=== PATIENT | male | born 1945 | race Caucasian/White ===

== ENCOUNTER 2020-03-11 13:31 | Outpatient (CLI) | payer MEDICARE, BC, SELFPAY ==
--- NOTE | ~2020-03-11 | CT_ITS ---
EXAMINATION: CT abdomen pelvis wo con DATE: 03/11/2020 14:00 INDICATION: Acute flank pain. Evaluate for kidney stone. TECHNIQUE: Computed tomography (CT) of the abdomen and pelvis was performed without intravenous contr ast. The dose-length product was 1028.43 mGy-cm. Automated exposure control and iterative reconstruct ion technique were employed. COMPARISON: None. FINDINGS: Lung bases are unremarkable. Heart size upper normal. No significant pleural or pericardial effusion. There calcified granulomas in the liver and spleen. 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 The adrenal glands are within normal limits. There is an ectopic horse shoe kidney centered in the right lower abdomen. There are parapelvic cysts as well as cortical cysts , largest measuring 7 cm. No ureteral stones or hydronephrosis. Bladder is unremarkable. Gallbladder is present. Retroaortic left renal vein. Nonobstructive bowel gas pattern. There are calcifications i n the pancreatic body, possibly secondary to chronic pancreatitis. No abnormal pelvic masses or fluid collections. Moderate lumbar spondylosis. IMPRESSION: 1. 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 Bilateral renal cysts. Reviewed, dictated and finalized at location A. IMPRESSION: 1. 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 Bilateral renal cysts.
== END 2020-03-11 13:32 | disposition home or self-care (01) ==
LOC: ANHIMG 13:38
PROVIDERS: PCP Internal Medicine; Visit Provider Internal Medicine
DX: R10.9 Unspecified abdominal pain (principal); I72.8 Aneurysm of other specified arteries
CPT/HCPCS: 74176

== ENCOUNTER 2020-04-23 08:15 | Outpatient (RCR) | payer MEDICARE, BC, SELFPAY ==
--- NOTE | 2020-03-26 09:18 | PTOPEVAL ---
PHYSICAL THERAPY EVALUATION AND PLAN OF CARE Thank you for referring Drake Patricio to [facility]. I recommend Adalid participate in PT 2x/week for 4 weeks. Please review, sign, date and return this plan of care CHERYL. I agree with and certify that the following plan of care is medically necessary. Referring Physician Date Attending Provider: Felicia Rees, FACSIMILE OPERATOR-C Evaluation Musculoskeletal History Hx Back Pain Yes: spinal stenosis Other History Hx Cancer Yes: prostate Diagnosis right lower back pain Onset 7 weeks ago Cause insidious Subjective Information Adalid is here today with Query Text:As Reported By Patient/ subacute right lower back pain Family . Reports that it started without cause. It has been fairly constant with good days and bad days. Today is not a good day. Yesterday was a good day and he spent the day taking care of a piece of property and today he is really sore. Right Spine, Lumbar Reported Pain Level 7 Pain Description Aching,Sharp Pain Frequency Acute,Continuous Lowest Pain Intensity 3 Greatest Pain Intensity 9 Pain Aggravating Factors Bending,Walking,Weight Bearing /Standing Pain Behaviors Moaning Cervical and Lumbar ROM Lumbar ROM Lumbar Flexion (0-90) 15 Query Text:Active in Degrees Lumbar Flexion Active Mid Head Query Text:Hands to: Lumbar Extension (0-40) 0 Query Text:Active in Degrees Lateral Rotation Right (0-45) 35 Query Text:Active in Degrees Lateral Rotation Left (0-45) 20 Query Text:Active in Degrees General Lower Extremity Range of Motion WFL/Left,WFL/Right Lumbar Strength Lower Abdominal Strength 3-Fair- Hip Strength Bilateral Hip Flexion Strength 5 Normal Hip Extension Strength 4 Good Hip Abduction Strength 3 Fair Knee Strength Bilateral Knee Flexion Strength 5 Normal Knee Extension Strength 5 Normal Muscle Length Testing Two-Joint Hip Flexor Shortened Muscles Short (R) Iliopsoas,Short (L) Iliopsoas,Short (R) Rectus Femoris,Short (L) Rectus Femoris Piriformis w/Hip Flexion >90 Degrees (L) Mild Tightness,(R) Moderate Tightness Left Hamstring Length -15 Query Text:(90 - 90 Position) Right Hamstring Length
--- NOTE | 2020-04-21 08:49 | PCPTNOTE ---
Addendum entered by Shama Mayo, MACHINE COREMAKER 04/21/20 17:24: Patient called wellness center after receiving phone call about therapy appointment this date. Stated last week on during his appointment he cancelled the appointment at the hotel front desk clerk and unsure where the message wasn't completed. Changed patients states to cancelled. Original Note: Patient did not show up for scheduled appointment this date; Called and left voicemail reminding about next appointment on 04/23 at 8:15
--- NOTE | 2020-04-23 08:39 | PTOPEVAL ---
PHYSICAL THERAPY DISCHARGE Thank you for referring Drake Patricio to [facility].? Please review, sign, date and return this plan of care CHERYL. I agree with and certify that the following plan of care is medically necessary. Referring Physician Date Attending Provider: Felicia eRes, ATTACHE-C Discharge Outpatient Past Medical History Musculoskeletal History Hx Back Pain Yes: spinal stenosis Other History Hx Cancer Yes: prostate Diagnosis right lower back pain Cause insidious Subjective Information Adalid reports he is feeling Query Text:As Reported By Patient/ really well. Nothing new to Family report except feeling better. He is doing his stretches at home and he is planning on getting more massages as needed. Self Report Pain Assessment Right Spine, Lumbar Reported Pain Level 1 Pain Description Aching,Sharp Pain Frequency Acute,Continuous Pain Behaviors Moaning Pain Score Pain Score 1: Self Report Cervical and Lumbar ROM Lumbar ROM Lumbar Flexion (0-90) 40 Query Text:Active in Degrees Lumbar Flexion Active Mid Head Query Text:Hands to: Lumbar Extension (0-40) 0 Query Text:Active in Degrees Lateral Rotation Right (0-45) 35 Query Text:Active in Degrees Lateral Rotation Left (0-45) 35 Query Text:Active in Degrees Lumbar Comments limited extension due to spinal stenosis Lower Extremity Muscle Strength Testing Hip Strength Bilateral Hip Flexion Strength 5 Normal Hip Extension Strength 4 Good Hip Abduction Strength 4+ Good + Knee Strength Bilateral Knee Flexion Strength 5 Normal Knee Extension Strength 5 Normal Muscle Length Testing Muscle Length Testing Two-Joint Hip Flexor Shortened Muscles Short (R) Iliopsoas,Short (L) Iliopsoas Piriformis w/Hip Flexion >90 Degrees (R) Mild Tightness,(L) Mild Tightness Left Hamstring Length -15 Query Text:(90 - 90 Position) Right Hamstring Length -15 Query Text:(90 - 90 Position) Posture Posture Standing Position Posture Evaluation View Posterior Thoracic Spine Posture Neutral Lumbar Spine Posture Flattened Hip Posture (L) Flexed,(R) Flexed Knee Posture (L) Excess Flexion,(R) Excess Flexion Additional Posture Comments right lateral flexion with hips flexed
== END 2020-06-09 11:35 | disposition home or self-care (01) ==
LOC: ANHPT 08:15
PROVIDERS: PCP Internal Medicine; Visit Provider Clinical Nurse Specialist
DX: M54.9 Dorsalgia, unspecified (principal)
CPT/HCPCS: 97110; 97140; 97161

== ENCOUNTER 2020-04-27 10:24 | Outpatient (CLI) | payer MEDICARE, BC, SELFPAY ==
--- NOTE | ~2020-04-27 | US_ITS ---
EXAMINATION: US renal BI DATE: 04/27/2020 11:06 INDICATION: Bilateral flank pain TECHNIQUE: Multiple ultrasound grayscale images of the kidneys were obtained. COMPARISON: 03/11/2020 FINDINGS: There is a horseshoe kidney with left and right moieties appearing subjectively normal in size. There are large bilateral anechoic cysts at both the left and right renal moieties measuring 6.7 cm in max imal diameter at the right moiety and 7.0 cm maximal diameter at the left moiety. There are smaller a nechoic cystic spaces at the ashley of both the left and right renal moieties which on prior CT corresp ond to multiple smaller parapelvic cyst. No hydronephrosis. The kidneys demonstrate normal echogenici ty. No stones identified. The bladder is normal. IMPRESSION: 1. Horseshoe kidney with multiple cysts at both moieties. No hydronephrosis. Reviewed, dictated and finalized at location A.
== END 2020-04-27 10:25 | disposition home or self-care (01) ==
PROVIDERS: PCP Internal Medicine; Visit Provider Nurse Practitioner Family
DX: R19.00 Intra-abdominal and pelvic swelling, mass and lump, unspecified site (principal); N28.1 Cyst of kidney, acquired
CPT/HCPCS: 76775

== ENCOUNTER 2020-09-14 16:11 | Outpatient (CLI) | payer MEDICARE, BC, SELFPAY ==
--- NOTE | ~2020-09-14 | US_ITS ---
EXAMINATION: US abdomen limited DATE: 09/14/2020 16:40 INDICATION: Right upper quadrant abdominal pain. TECHNIQUE: Multiple grayscale and Doppler ultrasound images of the abdomen were obtained. COMPARISON: CT abdomen and pelvis 03/11/2020 FINDINGS: The visualized portions of the body and tail of the pancreas are normal. The liver is marycruz l without focal lesion. There is normal flow in main portal vein. The gallbladder is normal in size. No gallstones or gallbladder wall thickening. There was no sonographic Corral sign. The common duct i s normal and measures 5 mm. There is fusion of the kidneys. There is a 6.9 cm cyst in right kidney. IMPRESSION: 1. No etiology for the patient's symptoms. Reviewed, dictated and finalized at location A. N YARN DYER
== END 2020-09-14 16:12 | disposition home or self-care (01) ==
PROVIDERS: PCP Internal Medicine; Visit Provider Nurse Practitioner
DX: R10.11 Right upper quadrant pain (principal)
CPT/HCPCS: 76705

== ENCOUNTER → 2020-09-18 11:23 | Outpatient (CLI) | payer MEDICARE, BC, SELFPAY ==
--- NOTE | ~2020-09-18 | CT_ITS ---
EXAMINATION: CT abdomen pelvis wo con DATE: 09/18/2020 11:40 INDICATION: Right upper quadrant pain TECHNIQUE: Computed tomography (CT) of the abdomen and pelvis was performed without intravenous contr ast. The dose-length product (DLP) was 1027.12 mGy-cm. Automated exposure control and iterative recon struction technique were employed. COMPARISON: 03/11/2020 FINDINGS: Minimal dependent atelectasis is present in the lung bases. The heart size is normal. Calci fied nodules of the visualized lung bases are consistent with old granulomatous disease. Punctate mao cifications in otherwise normal appearing liver and spleen likely represent healed granulomatous dise ase. Embolization coils in the splenic artery cause streak artifact in the upper abdomen. Punctate ca lcifications in otherwise normal appearing liver and spleen likely represent healed granulomatous dis ease. The gallbladder, adrenal glands, and visualized portions of the pancreas are unremarkable. Ther e is crossed fused ectopia of the kidneys which reside in the right abdomen. Cysts of the kidneys duane sure up to 7.4 cm. No hydronephrosis or hydroureter. No pathologically enlarged abdominal or pelvic l ymph nodes are identified. There is no free intraperitoneal gas or evidence of bowel obstruction. The re are bilateral inguinal hernias containing fat. There is severe lumbar spondylosis. A fat-containin g umbilical hernia is noted. IMPRESSION: 1. No CT correlate for the patient's symptoms. Reviewed, dictated and finalized at location A. ID CAR MECHANIC
== END ==
PROVIDERS: PCP Internal Medicine; Visit Provider Nurse Practitioner
DX: R10.11 Right upper quadrant pain (principal)
CPT/HCPCS: 74176

== ENCOUNTER → 2020-11-14 01:40 | Outpatient (CLI) | payer MEDICARE, BC, SELFPAY ==
[2020-11-14 18:53] LABS: SARS-CoV-2 RNA PCR Negative
== END ==
PROVIDERS: PCP Internal Medicine; Visit Provider Internal Medicine Gastroenterology
DX: Z01.812 Encounter for preprocedural laboratory examination (principal); Z20.822 Contact with and (suspected) exposure to COVID-19
CPT/HCPCS: C9803; U0003; U0005

== ENCOUNTER 2020-11-17 01:34 | Day surgery (SDC) | payer MEDICARE, BC, SELFPAY ==
[2020-11-02 14:34] VITALS: BMI 31.0
[2020-11-17 10:12] VITALS: BP 141/77; PULSE 53; RESP 18; TEMP 36.3; O2SAT 97; BMI 30.3
[2020-11-17] MEDS: LACTATED RINGERS 1,000 ML 150 ML IV CONT (10:27)
[2020-11-17 10:34] LABS: Glucose Point of Care 134 (65-105)
--- NOTE | 2020-11-17 10:46 | WPDANESEPPF ---
Anes - Initial Pre Proc Eval Procedure: Operation Date: 11/17/20 11:00 Proposed Procedures p Esophagogastroduodenoscopy - Phil Joseph MD Date/Time: 11/17/20 10:46 Surgeon: Phil Joseph MD Pre Op Diagnosis: Dysphagia Patient Data Age: 75 Gender: M Height: 6 ft 1 in Weight: 104.4 kg Last Vital Signs Temp 97.4 F L 11/17/20 10:12 Pulse 53 L 11/17/20 10:12 Resp 18 11/17/20 10:12 BP 141/77 H 11/17/20 10:12 Pulse Ox 97 11/17/20 10:12 Allergies Allergy/AdvReac Type Severity Reaction Status Date / Time No Known Allergies Allergy Unverified 11/17/20 10:11 Home Medications Medication Instructions Recorded Confirmed Type metformin 1,000 mg tablet 1,000 mg PO DAILY #90 tablet 05/06/20 11/17/20 Rx amlodipine 10 mg-benazepril 40 mg 1 cap PO DAILY #90 cap 06/22/20 11/17/20 Rx capsule simvastatin 20 mg tablet 20 mg PO DAILY #90 tablet 06/22/20 11/17/20 Rx nebivolol 5 mg tablet 5 mg PO DAILY #90 tablet 07/21/20 11/17/20 Rx allopurinol 300 mg tablet 300 mg PO DAILY #90 tablet 08/11/20 11/17/20 Rx hydrochlorothiazide 25 mg tablet 25 mg PO DAILY #90 tablet 08/11/20 11/17/20 Rx oxybutynin chloride 5 mg tablet 5 mg PO DAILY 10/14/20 11/17/20 History Laboratory Tests 11/17/20 10:29 POC Capillary Glucose 134 mg/dl H mg/dl (65-105) Patient hx anesthesia problems: none Family hx anesthesia problems: none [facility] Past Medical History Medical History (Updated 10/28/20 @ 13:25 by Phil Joseph MD) Aneurysm artery, hepatic (~07/2020) Colon cancer screening HLD (hyperlipidemia) HTN (hypertension) Lump in throat Prostate cancer Type 2 diabetes mellitus without complication, without long-term current use of insulin Von Willebrand disease Surgical History Surgical History H/O right knee surgery History of appendectomy History of prostate surgery History of skin surgery basal cell removal History of tonsillectomy Hx of cataract surgery Family History Family History Mother Family history of Parkinson's disease Father Family history of congestive heart failure Sibling Cancer Social History Social History Years smoked: 30 Smoking status: Former smoker Tobacco type: cigars Smoking end date: 09/04/93 Alcohol intake: current Substance use type: does not use Living arrangements: with family Gender identity (if verbalized by the patient): Male Spiritual care concerns: No Anes - Eval Final PreProcedure Day of Procedure 11/17/20 10:46 Patient weight: obese Heart: regular rate and rhythm Lungs: clear to auscultation Airway: Mallampati scale class III Neurological: alert and oriented Last oral intake: >/= 8 hours ASA classification: III Emergent: no Anesthetic plan: proceed Anesthesia type and monitoring: general GIVS and standard monitoring Informed Consent: The patient's anesthetic plan and its attendant risks and benefits were discussed with the patient/family/POA. Questions were solicited and answers provided to the satisfaction of the patient/family/POA.
--- NOTE | 2020-11-17 11:47 | WPDHPUPDATE1 ---
History and Physical Update Update Date/Time: 11/17/20 11:47 History and Physical has been reviewed, including an updated exam of the patient. There are NO changes in the patient's condition. Risks, benefits, and alternatives have been discussed and questions answered. Patient agrees to proceed with procedure.
[2020-11-17] MEDS: BENZOCAINE (*SP) 60 ML SPRAY CAN (HURRICAINE) 1 SPRAY MUCOUS MEM (11:53)
[2020-11-17 12:00] VITALS: BP 106/59; PULSE 54; RESP 18; O2SAT 93
[2020-11-17 12:10] VITALS: BP 114/64; PULSE 52; RESP 20; O2SAT 93
[2020-11-17 12:20] VITALS: BP 127/66; PULSE 50; RESP 16; O2SAT 94
[2020-11-17 12:30] VITALS: BP 136/67; PULSE 52; RESP 18; O2SAT 95
== END 2020-11-17 12:38 | disposition home or self-care (01) ==
PROVIDERS: PCP Internal Medicine; Visit Provider Internal Medicine Gastroenterology
PROC: 0DJ08ZZ Inspection of Upper Intestinal Tract, Via Natural or Artificial Opening Endoscopic (ICD-10-PCS; CPT 43235; principal; 2020-11-17 11:00)
DX: F45.8 Other somatoform disorders (principal); I10 Essential (primary) hypertension; E78.5 Hyperlipidemia, unspecified; E11.9 Type 2 diabetes mellitus without complications; D68.0 Von Willebrand disease; Z85.46 Personal history of malignant neoplasm of prostate; Z79.84 Long term (current) use of oral hypoglycemic drugs; Z87.891 Personal history of nicotine dependence; E66.9 Obesity, unspecified; Z68.30 Body mass index [BMI] 30.0-30.9, adult
CPT/HCPCS: 43235; 82948; J2704; J7120

== ENCOUNTER 2021-04-30 06:39 | Outpatient (CLI) | payer MEDICARE, BC, SELFPAY ==
--- NOTE | ~2021-04-30 | MR_ITS ---
EXAMINATION: MR lumbar spine wo con DATE: 04/30/2021 08:06 INDICATION: Lumbar radiculopathy. TECHNIQUE: Magnetic resonance imaging (MRI) of the lumbar spine was performed without intravenous con trast. Sequences included sagittal T2-weighted FSE, sagittal T2-weighted FS FSE, sagittal T1-weighted FSE, and axial T2-weighted FSE. COMPARISON: Lumbar spine MRI 09/24/2015 FINDINGS: There is 5 degrees levocurvature of lumbar spine. Vertebral body heights are normal. There is moderately decreased disc height at L3-L4 and severely decreased disc height at L4-L5 and L5-S1 wi th endplate remodeling. The distal spinal cord signal intensity is normal. The conus medullaris is at L1. There are kidneys are fused in the right abdomen. There are cysts in the kidneys measuring up to 6.6 cm. The following disc levels are specifically discussed: L1-L2: The disc is bulging. There is mild bilateral facet joint osteoarthritis. There is mild bilater al neural foraminal stenosis. There is mild central canal stenosis. L2-L3: The disc is mildly bulging. There is mild bilateral facet joint osteoarthritis. There is mild bilateral neural foraminal stenosis. There is no central canal stenosis. L3-L4: The disc is bulging and has an annular fissure. There is moderate bilateral facet joint osteoa rthritis. There is mild bilateral neural foraminal stenosis. There is mild central canal stenosis. L4-L5: The disc is bulging and has an annular fissure. There is severe right and moderate left facet joint osteoarthritis. There is mild bilateral neural foraminal stenosis. There is no central canal st enosis. L5-S1: The disc is bulging and has an annular fissure. There is moderate bilateral facet joint osteoa rthritis. There is moderate left neural foraminal stenosis. There is mild central canal stenosis. IMPRESSION: 1. Severe lumbar spondylosis, stable from 09/24/2015. Reviewed, dictated and finalized at location A.
== END 2021-04-30 06:40 | disposition home or self-care (01) ==
PROVIDERS: PCP Internal Medicine; Visit Provider Nurse Practitioner
DX: M54.16 Radiculopathy, lumbar region (principal); M47.816 Spondylosis without myelopathy or radiculopathy, lumbar region
CPT/HCPCS: 72148

== ENCOUNTER 2021-06-22 15:48 | Outpatient (CLI) | payer MEDICARE, BC, SELFPAY ==
[2021-06-22 16:08] LABS: Hematocrit 45.3 % (42.0-52.0); Hemoglobin 15.2 g/dL (14.0-18.0); Mean Corpuscular HGB Conc 33.6 g/dl (32-36); Mean Corpuscular Hemoglobin 32.7 pg (26-34); Mean Corpuscular Volume 97.4 fl (80-100); Mean Platelet Volume 9.7 fl (7.4-10.4); Platelet Count Result 186 k/mm3 (150-375); Red Blood Count 4.65 M/mm3 (4.6-6.20); White Blood Count 5.6 K/mm3 (4.5-10.0)
[2021-06-22 16:43] LABS: INR 0.9; Prothrombin Time 11.6 Seconds (11.1-14.7)
== END 2021-06-22 15:49 | disposition home or self-care (01) ==
LOC: ANHLAB 15:51
PROVIDERS: PCP Internal Medicine; Visit Provider Internal Medicine Hematology & Oncology
DX: D68.0 Von Willebrand disease (principal)
CPT/HCPCS: 36415; 85027; 85240; 85245; 85246; 85247; 85610; 85730

== ENCOUNTER 2021-12-29 01:18 | Day surgery (SDC) | payer MEDICARE, BC, SELFPAY ==
[2021-12-20 08:45] VITALS: BMI 31.0
[2021-12-29 11:54] VITALS: BP 159/80; PULSE 77; RESP 18; TEMP 36.3; O2SAT 99; BMI 29.9
[2021-12-29] MEDS: LACTATED RINGERS 1,000 ML 150 ML IV CONT (12:23)
[2021-12-29 12:40] LABS: Glucose Point of Care 155 mg/dl (65-105)
--- NOTE | 2021-12-29 13:01 | WPDANESEPPF ---
Anes - Initial Pre Proc Eval Procedure: Operation Date: 12/29/21 13:15 Proposed Procedures p Colonoscopy - Phil Joseph MD Date/Time: 12/29/21 13:01 Surgeon: Phil Joseph MD Pre Op Diagnosis: positive cologuard Patient Data Age: 76 Gender: M Height: 1.85 m Weight: 103.1 kg Last Vital Signs Temp 97.3 F L 12/29/21 11:54 Pulse 77 12/29/21 11:54 Resp 18 12/29/21 11:54 BP 159/80 H 12/29/21 11:54 Pulse Ox 99 12/29/21 11:54 Allergies Allergy/AdvReac Type Severity Reaction Status Date / Time No Known Allergies Allergy Verified 12/29/21 12:01 Home Medications Medication Instructions Recorded Confirmed Type simvastatin 20 mg tablet 20 mg PO DAILY #90 tablet 06/03/21 12/29/21 Rx hydrochlorothiazide 25 mg tablet 25 mg PO DAILY #90 tablet 09/20/21 12/29/21 Rx methocarbamol 500 mg tablet 500 mg PO TID 10/20/21 12/29/21 History metformin 1,000 mg tablet 1,000 mg PO DAILY #90 tablet 11/09/21 12/29/21 Rx allopurinol 300 mg tablet 300 mg PO DAILY #90 tablet 12/17/21 12/29/21 Rx amlodipine 10 mg-benazepril 40 mg 1 cap PO DAILY #90 cap 12/23/21 12/29/21 Rx capsule Laboratory Tests 12/29/21 12:09 POC Capillary Glucose 155 mg/dl H mg/dl (65-105) Patient hx anesthesia problems: none Family hx anesthesia problems: none Results Review: All pre-operative results and documents have been reviewed as part of the pre-operative evaluation. [facility] Past Medical History Medical History (Updated 11/15/21 @ 10:20 by Marcy Toscano MA) Aneurysm artery, hepatic (~07/2020) Colon cancer screening HLD (hyperlipidemia) HTN (hypertension) Lump in throat Neuropathy Positive colorectal cancer screening using Cologuard test Prostate cancer Type 2 diabetes mellitus without complication, without long-term current use of insulin Von Willebrand disease Surgical History Surgical History H/O right knee surgery History of appendectomy History of prostate surgery History of skin surgery basal cell removal History of tonsillectomy Hx of cataract surgery Family History Family History Mother Family history of Parkinson's disease Father Family history of congestive heart failure Sibling Cancer Social History Social History Years smoked: 30 Smoking status: Current every day smoker Tobacco type: cigars Smoking end date: 09/04/93 Additional smoking assessment comments: quit cigarettes 40 years ago, has daily cigar Alcohol intake: current Drinks per week: 7 Alcohol use details: 1-2 drinks daily Substance use: never Substance use type: does not use Living arrangements: with family Gender identity (if verbalized by the patient): Male Spiritual care concerns: No Anes - Eval Final PreProcedure Day of Procedure 12/29/21 13:01 Patient weight: obese Heart: regular rate and rhythm Lungs: clear to auscultation Airway: Mallampati scale class II Neurological: alert and oriented Last oral intake: >/= 8 hours ASA classification: III Emergent: no Anesthetic plan: proceed Anesthesia type and monitoring: general GIVS and standard monitoring Results Review: All pre-operative results and documents have been reviewed as part of the pre-operative evaluation. Informed Consent: The patient's anesthetic plan and its attendant risks and benefits were discussed with the patient/family/POA. Questions were solicited and answers provided to the satisfaction of the patient/family/POA.
--- NOTE | 2021-12-29 13:30 | PM.HPGS ---
History of Present Illness History of Present Illness Consent: Risks, benefits, and alternatives have been discussed and questions answered. Patient agrees to proceed with procedure. Chief complaint: positive cologuard Narrative: Drake Patricio is a 76 year old male with recent positive cologuard, had colonoscopy but over 10 years ago. Review of Systems Constitutional: Constitutional: Denies headache(s) and Denies weakness Eyes: Eyes: Denies blurry vision ENT: Reports Normal hearing present, Denies headache(s) and Denies neck pain Cardiovascular: Cardiovascular: Denies chest pain and Denies dyspnea Respiratory: Respiratory: Denies dyspnea Gastrointestinal: Gastrointestinal: Reports no additional gastrointestinal complaints Genitourinary: Genitourinary: Denies dysuria Musculoskeletal: Musculoskeletal: Denies neck pain Integumentary/Breasts: Skin/Breast: Denies dry skin Neurologic: Reports Normal hearing present, Denies headache(s) and Denies weakness Psychiatric: Psychiatric: Denies anxiety Endocrine: Endocrine: Denies change in body appearance Hematologic/Lymphatic: Hematologic/Lymphatic: Denies easy bleeding Allergic/Immunologic: Allergic/Immunologic: Denies urticaria [facility] Past Medical History Medical History (Updated 11/15/21 @ 10:20 by Marcy Toscano MA) Aneurysm artery, hepatic (~07/2020) Colon cancer screening HLD (hyperlipidemia) HTN (hypertension) Lump in throat Neuropathy Positive colorectal cancer screening using Cologuard test Prostate cancer Type 2 diabetes mellitus without complication, without long-term current use of insulin Von Willebrand disease Surgical History Surgical History H/O right knee surgery History of appendectomy History of prostate surgery History of skin surgery basal cell removal History of tonsillectomy Hx of cataract surgery Family History Family History Mother Family history of Parkinson's disease Father Family history of congestive heart failure Sibling Cancer Social History Social History Years smoked: 30 Smoking status: Current every day smoker Tobacco type: cigars Smoking end date: 09/04/93 Additional smoking assessment comments: quit cigarettes 40 years ago, has daily cigar Alcohol intake: current Drinks per week: 7 Alcohol use details: 1-2 drinks daily Substance use: never Substance use type: does not use Living arrangements: with family Gender identity (if verbalized by the patient): Male Spiritual care concerns: No Meds Home Medications and Allergies Home Medications Medication Instructions Recorded Confirmed Type simvastatin 20 mg tablet 20 mg PO DAILY #90 tablet 06/03/21 12/29/21 Rx hydrochlorothiazide 25 mg tablet 25 mg PO DAILY #90 tablet 09/20/21 12/29/21 Rx methocarbamol 500 mg tablet 500 mg PO TID 10/20/21 12/29/21 History metformin 1,000 mg tablet 1,000 mg PO DAILY #90 tablet 11/09/21 12/29/21 Rx allopurinol 300 mg tablet 300 mg PO DAILY #90 tablet 12/17/21 12/29/21 Rx amlodipine 10 mg-benazepril 40 mg 1 cap PO DAILY #90 cap 12/23/21 12/29/21 Rx capsule Allergies Allergy/AdvReac Type Severity Reaction Status Date / Time No Known Allergies Allergy Verified 12/29/21 12:01 Vital Signs Vital Signs - 24 hr 12/29/21 11:54 Temperature 97.3 F L Pulse Rate 77 Respiratory Rate 18 Blood Pressure 159/80 H Pulse Oximetry 99 Exam Const: General: comfortable and no acute distress HENMT: General nose exam: Normal nares present Eyes: General: appearance normal, both eyes and all related structures Neck: Neck: no JVD Resp: Auscultation: clear to auscultation bilaterally Cardio: Rate: regular rate Rhythm: regular rhythm GI: Inspection: non-distended GI Palp: Yes Soft to p
[2021-12-29 14:20] VITALS: BP 132/77; PULSE 69; RESP 23; O2SAT 97
[2021-12-29 14:30] VITALS: BP 141/81; PULSE 63; RESP 20; O2SAT 97
[2021-12-29 14:40] VITALS: BP 157/83; PULSE 60; RESP 19; O2SAT 96
== END 2021-12-29 14:47 | disposition home or self-care (01) ==
PROVIDERS: PCP Internal Medicine; Visit Provider Internal Medicine Gastroenterology
PROC: 0DJD8ZZ Inspection of Lower Intestinal Tract, Via Natural or Artificial Opening Endoscopic (ICD-10-PCS; CPT 45378; principal; 2021-12-29 13:15)
DX: R19.5 Other fecal abnormalities (principal); D12.2 Benign neoplasm of ascending colon; K57.30 Diverticulosis of large intestine without perforation or abscess without bleeding; K64.8 Other hemorrhoids; I10 Essential (primary) hypertension; I72.8 Aneurysm of other specified arteries; E78.5 Hyperlipidemia, unspecified; E11.40 Type 2 diabetes mellitus with diabetic neuropathy, unspecified; D68.0 Von Willebrand disease; Z85.46 Personal history of malignant neoplasm of prostate; Z79.84 Long term (current) use of oral hypoglycemic drugs; F17.290 Nicotine dependence, other tobacco product, uncomplicated; E66.9 Obesity, unspecified; Z68.30 Body mass index [BMI] 30.0-30.9, adult
CPT/HCPCS: 45385; 45381; 82948; 88305; J2704; J7120

== ENCOUNTER 2022-08-12 00:47 | Day surgery (SDC) | payer MEDICARE, BC, SELFPAY ==
[2022-08-02 12:57] VITALS: BMI 30.2
[2022-08-12 08:55] VITALS: BP 146/70; PULSE 70; RESP 18; TEMP 36.4; O2SAT 99; BMI 29.1
[2022-08-12] MEDS: LACTATED RINGERS 1,000 ML 150 ML IV CONT (09:20)
[2022-08-12 09:22] LABS: Glucose Point of Care 136 mg/dl (65-105)
--- NOTE | 2022-08-12 09:46 | PM.HPGS ---
History of Present Illness History of Present Illness Consent: Risks, benefits, and alternatives have been discussed and questions answered. Patient agrees to proceed with procedure. Chief complaint: hx colon polyp Narrative: Drake Patricio is a 76 year old male with large polyp removed in piece-meal 12/2021 Review of Systems Constitutional: Constitutional: Denies headache(s) and Denies weakness Eyes: Eyes: Denies blurry vision ENT: Reports Normal hearing present, Denies headache(s) and Denies neck pain Cardiovascular: Cardiovascular: Denies chest pain and Denies dyspnea Respiratory: Respiratory: Denies dyspnea Gastrointestinal: Gastrointestinal: Reports no additional gastrointestinal complaints Genitourinary: Genitourinary: Denies dysuria Musculoskeletal: Musculoskeletal: Denies neck pain Integumentary/Breasts: Skin/Breast: Denies dry skin Neurologic: Reports Normal hearing present, Denies headache(s) and Denies weakness Psychiatric: Psychiatric: Denies anxiety Endocrine: Endocrine: Denies change in body appearance Hematologic/Lymphatic: Hematologic/Lymphatic: Denies easy bleeding Allergic/Immunologic: Allergic/Immunologic: Denies urticaria [facility] Past Medical History Medical History (Updated 08/12/22 @ 09:46 by Phil Joseph MD) Adenomatous colon polyp Aneurysm artery, hepatic (~07/2020) Colon cancer screening HLD (hyperlipidemia) HTN (hypertension) Lump in throat Neuropathy Positive colorectal cancer screening using Cologuard test Prostate cancer Type 2 diabetes mellitus without complication, without long-term current use of insulin Von Willebrand disease Surgical History Surgical History H/O right knee surgery History of appendectomy History of prostate surgery History of skin surgery basal cell removal History of tonsillectomy Hx of cataract surgery Family History Family History Mother Family history of Parkinson's disease Father Family history of congestive heart failure Sibling Cancer Social History Social History Years smoked: 10 Smoking status: Current every day smoker Tobacco type: cigars Smoking end date: 09/04/93 Additional smoking assessment comments: quit cigarettes 40 years ago, has daily cigar Alcohol intake: current Drinks per week: 7 Alcohol use details: 1 DRINK A DAY, SCOTCH Substance use: never Substance use type: does not use Living arrangements: with family Gender identity (if verbalized by the patient): Male Spiritual care concerns: No Meds Home Medications and Allergies Home Medications Medication Instructions Recorded Confirmed Type hydrochlorothiazide 25 mg tablet 25 mg PO DAILY #90 tabs 09/20/21 08/12/22 Rx simvastatin 20 mg tablet See Rx Instructions .Route 06/03/22 08/12/22 Rx .COMPLEX #90 tabs amlodipine 10 mg-benazepril 40 mg See Rx Instructions .Route 06/27/22 08/12/22 Rx capsule .COMPLEX #90 caps metformin 1,000 mg tablet See Rx Instructions .Route 08/02/22 08/12/22 Rx .COMPLEX #90 tabs methocarbamol 500 mg tablet 500 mg PO TID PRN Muscle Pain 08/02/22 08/12/22 History allopurinol 300 mg tablet 300 mg PO DAILY #90 tabs 08/10/22 08/12/22 Rx Allergies Allergy/AdvReac Type Severity Reaction Status Date / Time No Known Allergies Allergy Verified 08/12/22 09:03 Vital Signs Vital Signs - 24 hr 08/12/22 08:55 Temperature 97.6 F Pulse Rate 70 Respiratory Rate 18 Blood Pressure 146/70 H Pulse Oximetry 99 Oxygen Delivery Room Air Exam Const: General: comfortable and no acute distress HENMT: Face/Nose/Sinus: Normal nares present Eyes: General: appearance normal, both eyes and all related structures Neck: Neck: no JVD Resp: Auscultation: clear to auscultation bilaterall
[2022-08-12 10:09] VITALS: BP 131/78; PULSE 70; RESP 17; O2SAT 96
[2022-08-12 10:19] VITALS: BP 134/82; PULSE 78; RESP 18; O2SAT 98
[2022-08-12 10:29] VITALS: BP 136/81; PULSE 68; RESP 18; O2SAT 98
== END 2022-08-12 10:40 | disposition home or self-care (01) ==
PROVIDERS: PCP Internal Medicine; Visit Provider Internal Medicine Gastroenterology
PROC: 0DJD8ZZ Inspection of Lower Intestinal Tract, Via Natural or Artificial Opening Endoscopic (ICD-10-PCS; CPT 45378; principal; 2022-08-12 10:15)
DX: Z12.11 Encounter for screening for malignant neoplasm of colon (principal); D12.2 Benign neoplasm of ascending colon; D12.3 Benign neoplasm of transverse colon; D12.4 Benign neoplasm of descending colon; K64.8 Other hemorrhoids; E78.5 Hyperlipidemia, unspecified; I10 Essential (primary) hypertension; Z85.46 Personal history of malignant neoplasm of prostate; F17.290 Nicotine dependence, other tobacco product, uncomplicated
CPT/HCPCS: 45385; 82948; 88305; J2704; J7120

== ENCOUNTER 2023-07-17 13:20 | Outpatient (CLI) | payer MEDICARE, BC, SELFPAY ==
--- NOTE | ~2023-07-17 | US_ITS ---
EXAMINATION: US soft tissue UE LT DATE: 07/17/2023 13:47 INDICATION: Left forearm mass TECHNIQUE: Multiple grayscale and Doppler ultrasound images of the region of concern at the left fore arm were obtained. COMPARISON: None FINDINGS: There is a 3-4 mm hypoechoic nodule centered in the subcutaneous tissues at the region of concern. Th ere is focal surrounding soft tissue swelling with thickening of the subcutaneous fat in greatest in the region of the nodule. No significant associated vascular flow on color Doppler. IMPRESSION: 1. Focal soft tissue swelling surrounding a nonspecific 3-4 mm hypoechoic nodule in the superficial s ubcutaneous tissues which could be infectious, inflammatory or neoplastic in etiology. Reviewed, dictated and finalized at location A. SCI[facility] PROFESS[facility] IMPRESSION: 1. Focal soft tissue swelling surrounding a nonspecific 3-4 mm hypoechoic nodul e in the superficial subcutaneous tissues which could be infectious, inflammato ry or neoplastic in etiology.
== END 2023-07-17 13:21 ==
DX: R22.32 Localized swelling, mass and lump, left upper limb (principal)
CPT/HCPCS: 76882

== ENCOUNTER 2023-12-20 08:15 | Emergency (ER) | payer MEDICARE, BC, SELFPAY ==
[2023-12-20 08:24] VITALS: BP 142/65; PULSE 80; RESP 14; TEMP 36.6; O2SAT 97
--- NOTE | 2023-12-20 08:52 | ED.EXTPRO ---
HPI - Extremity Problem General Chief complaint: Extremity Problem,Nontraumatic Stated complaint: Right Foot Pain Time Seen by Provider: 12/20/23 08:37 Source: patient and RN notes reviewed Mode of arrival: ambulatory Limitations: no limitations History of Present Illness HPI Narrative: Patient presents today complaining of a painful callus to the bottom of his right foot that has been present for a couple of months. States it has been debulked few times by Podiatry, but states this has caused more issues. The last time he saw podiatry was approximately 1 month ago and pain has worsened over the last 3 days. He has an appointment next week for follow-up, but states his pain is currently 10/10. He has been applying an Nino wrapped his foot which has helped as well as taking ibuprofen which has helped minimally. Patient does have some neuropathy to his toes. Related Data Home Medications Medication Instructions Recorded Confirmed cholecalciferol (vitamin D3) 25 25 mcg PO DAILY 10/10/23 12/20/23 mcg (1,000 unit) capsule vitamin B complex 1 tablet PO DAILY 10/10/23 12/20/23 Allergies Allergy/AdvReac Type Severity Reaction Status Date / Time No Known Allergies Allergy Verified 12/20/23 08:25 Review of Systems Review of Systems: CONSTITUTIONAL: Denies body aches, fever, chills, or sweats. EYES: Denies visual changes, redness, or discharge. ENT: Denies rhinorrhea, congestion, sore throat, or otalgia. CARDIOVASCULAR: Denies chest pain, palpitations, or edema. RESPIRATORY: Denies cough or dyspnea. GASTROINTESTINAL: Denies abdominal pain, nausea, vomiting, or diarrhea. GENITOURINARY: Denies dysuria or hematuria. SKIN: Denies rash, itching, or wounds. MUSCULOSKELETAL: Denies back pain, or myalgia.+ right foot pain NEUROLOGIC: Denies headache, numbness, tingling, or weakness. PSYCH: Denies depression or anxiety. [facility] Past Medical History Medical History Adenomatous colon polyp Aneurysm artery, hepatic (~07/2020) Colon cancer screening HLD (hyperlipidemia) HTN (hypertension) Lump in throat Neuropathy Positive colorectal cancer screening using Cologuard test Prostate cancer Type 2 diabetes mellitus without complication, without long-term current use of insulin Von Willebrand disease Surgical History Surgical History H/O right knee surgery History of appendectomy History of prostate surgery History of skin surgery basal cell removal History of surgery on arm History of tonsillectomy Hx of cataract surgery Family History Family History Mother Family history of Parkinson's disease Father Family history of congestive heart failure Sibling Cancer Social History Social History (Updated 12/20/23 @ 08:54 by Suzanne Del Real, [place], ) Years smoked: 10 Smoking status: Former smoker Tobacco type: cigars Smoking end date: 09/04/93 Additional smoking assessment comments: quit cigarettes 40 years ago, has daily cigar Alcohol intake: current Drinks per week: 7 Alcohol use details: 1 DRINK A DAY, SCOTCH Substance use: never Substance use type: does not use Lack of Transportation: No Lack of Food: Never True Current Housing: I Have Housing Concerned About Future Housing: No Difficulty Paying Gas/Electric Bills: No Difficulty Paying for Meds: No Currently Unemployed: No Education: High School Diploma/GED Difficulty w/ Childcare or Family Care: No Living arrangements: with family Gender identity (if verbalized by the patient): Male Spiritual care concerns: No Exam Narrative: GENERAL: Well-appearing, well-nourished, and in no acute distress. HEAD: Normocephalic, atraumatic. EYES: EOMI. No redness or drainage. Conjunctivae normal. ENT: Mucous membranes pink and moist
== END 2023-12-20 08:53 | disposition home or self-care (01) ==
PROVIDERS: Emergency Provider Nurse Practitioner; PCP Internal Medicine
DX: L03.115 Cellulitis of right lower limb (principal); L84 Corns and callosities; F17.290 Nicotine dependence, other tobacco product, uncomplicated; E78.5 Hyperlipidemia, unspecified; I10 Essential (primary) hypertension; G62.9 Polyneuropathy, unspecified; E11.9 Type 2 diabetes mellitus without complications; D68.00 Von Willebrand disease, unspecified; Z85.828 Personal history of other malignant neoplasm of skin
CPT/HCPCS: 99213; G0463

== ENCOUNTER 2024-02-12 08:53 | Outpatient (CLI) | payer MEDICARE, BC, SELFPAY ==
--- NOTE | ~2024-02-12 | XR_ITS ---
XR chest 2V Ordering provider: Vesta Bennett NP History: 78 years Male with . R63.4 - Abnormal weight loss . Comparison: March 19, 2014 FINDINGS: MEDIASTINUM: The cardiac silhouette is not enlarged. LUNGS: No effusions or pneumothorax. Atelectatic changes in the left lung base. OTHER: Degenerative changes of the spine. No free air under the diaphragm. IMPRESSION: Atelectatic changes in the left lung base. Early pneumonia is not excluded. Reviewed, dictated and finalized at location A.
== END 2024-02-12 08:54 ==
LOC: GOSHIMG 08:54
PROVIDERS: PCP Internal Medicine; Visit Provider Nurse Practitioner
DX: R63.4 Abnormal weight loss (principal); J98.11 Atelectasis
CPT/HCPCS: 71046

== ENCOUNTER 2024-03-13 15:38 | Emergency (ER) | payer MEDICARE, BC, SELFPAY ==
[2024-03-13 15:48] VITALS: BP 141/70; PULSE 91; RESP 16; TEMP 36.8; O2SAT 95
--- NOTE | 2024-03-13 16:09 | ED.URI ---
HPI - URI/Sore Throat General Chief Complaint: Upper Respiratory Infection Stated Complaint: cough Time Seen by Provider: 03/13/24 16:01 Source: patient and RN notes reviewed Mode of arrival: ambulatory Limitations: no limitations History of Present Illness HPI Narrative: Patient presents today with a 3 day history of dry nonproductive cough that is worse when he is lying flat. Patient states he feels chest congestion but it will not come up. Denies shortness of breath or chest pain. He has not tried any [id number] treatment for his symptoms prior to arrival. Denies history of COPD or asthma. Smokes 2 cigars per day. Denies any additional symptoms to include sore throat, ear pain, fever, congestion or rhinorrhea. Related Data Home Medications Medication Instructions Recorded Confirmed cholecalciferol (vitamin D3) 25 25 mcg PO DAILY 10/10/23 03/13/24 mcg (1,000 unit) capsule vitamin B complex 1 tablet PO DAILY 10/10/23 03/13/24 Allergies Allergy/AdvReac Type Severity Reaction Status Date / Time No Known Allergies Allergy Verified 03/13/24 15:40 Review of Systems Review of Systems: CONSTITUTIONAL: Denies body aches, fever, chills, or sweats. EYES: Denies visual changes, redness, or discharge. ENT: Denies rhinorrhea, congestion, sore throat, or otalgia. CARDIOVASCULAR: Denies chest pain, palpitations, or edema. RESPIRATORY: Denies dyspnea.+ cough GASTROINTESTINAL: Denies abdominal pain, nausea, vomiting, or diarrhea. GENITOURINARY: Denies dysuria or hematuria. SKIN: Denies rash, itching, or wounds. MUSCULOSKELETAL: Denies back pain, joint pain, or myalgia. NEUROLOGIC: Denies headache, numbness, tingling, or weakness. PSYCH: Denies depression or anxiety. [facility] Past Medical History Medical History (Reviewed 03/13/24 @ 16:11 by Suzanne Del Real, [facility] [place], ) Adenomatous colon polyp Aneurysm artery, hepatic (~07/2020) Colon cancer screening HLD (hyperlipidemia) HTN (hypertension) Lump in throat Neuropathy Positive colorectal cancer screening using Cologuard test Prostate cancer Type 2 diabetes mellitus without complication, without long-term current use of insulin Von Willebrand disease Surgical History Surgical History H/O right knee surgery H/O toe surgery History of appendectomy History of prostate surgery History of skin surgery basal cell removal History of surgery on arm History of tonsillectomy Hx of cataract surgery Family History Family History Mother Family history of Parkinson's disease Father Family history of congestive heart failure Sibling Cancer Social History Social History Years smoked: 10 Smoking status: Former smoker Tobacco type: cigars Smoking end date: 09/04/93 Additional smoking assessment comments: quit cigarettes 40 years ago, has daily cigar Alcohol intake: current Drinks per week: 7 Alcohol use details: 1 DRINK A DAY, SCOTCH Substance use: never Substance use type: does not use Lack of Transportation: No Lack of Food: Never True Current Housing: I Have Housing Concerned About Future Housing: No Difficulty Paying Gas/Electric Bills: No Difficulty Paying for Meds: No Currently Unemployed: No Education: High School Diploma/GED Difficulty w/ Childcare or Family Care: No Living arrangements: with family Gender identity (if verbalized by the patient): Male Spiritual care concerns: No Comments At time of signature, I have reviewed and agree with nursing past medical, surgical, social and family history unless otherwise noted. Please see nursing chart for further information. There is no relevant family history pertinent to the presenting complaint Exam Narrative: GENERAL: Well-appearing, well-nourished, and in no
== END 2024-03-13 16:25 | disposition home or self-care (01) ==
PROVIDERS: Emergency Provider Nurse Practitioner; PCP Internal Medicine
DX: J40 Bronchitis, not specified as acute or chronic (principal); F17.290 Nicotine dependence, other tobacco product, uncomplicated; E78.5 Hyperlipidemia, unspecified; I10 Essential (primary) hypertension; E11.40 Type 2 diabetes mellitus with diabetic neuropathy, unspecified; D68.00 Von Willebrand disease, unspecified; Z85.46 Personal history of malignant neoplasm of prostate; Z85.828 Personal history of other malignant neoplasm of skin
CPT/HCPCS: 99213; G0463

== ENCOUNTER 2024-03-21 15:01 | Outpatient (CLI) | payer MEDICARE, BC, SELFPAY ==
--- NOTE | ~2024-03-21 | CT_ITS ---
Clinical Indication: Abnormal weight loss CT Scan of the Chest, Abdomen, and Pelvis without Contrast: Technique: Contiguous sections were acquired throughout the chest, abdomen, and pelvis without IV con trast administration. Dose reduction technique was used on this scan by utilizing automated exposure control and iterative reconstruction technique. The dose-length product (DLP) was 1188.13 mGy-cm. COMPARISON: 09/18/2020 Findings: There is no evidence of any significant mediastinal, hilar or axillary lymphadenopathy. There are ext ensive atherosclerotic calcifications of the aorta and coronary arteries. There is no evidence of pleural or pericardial effusion. No overtly suspicious pulmonary nodule seen. Scattered peripheral tiny pulmonary nodules are present, most likely benign. Several calcified granulomas are present. Calcified hepatic and splenic granulomas are present. The pancreas, gallbladder, and adrenal glands a re within normal limits. There is probable cross fused renal ectopia to the right side versus portion kidney. There are probable parapelvic renal cysts and large cortical right-sided renal cyst. No hydr onephrosis or renal stone evident. There are atherosclerotic calcifications of the aorta. There are e ndovascular coils are present in the left upper quadrant region. No lymphadenopathy. No bowel obstruction or bowel wall thickening. There is no evidence to suggest acute appendicitis. Urinary bladder is unremarkable. No pelvic mass seen. There are bilateral fat-containing inguinal her nias, right larger than left. Impression: No evidence for malignancy. 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 Left upper quadrant endovascular coils. Bilateral fat-containing hernias, right larger than left. Reviewed, dictated and finalized at [facility]. Impression: No evidence for malignancy. 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 Left upper quadrant endovascular coils. Bilateral fat-containing hernias, right larger than left.
== END 2024-03-21 15:02 ==
PROVIDERS: PCP Internal Medicine; Visit Provider Nurse Practitioner
DX: R63.4 Abnormal weight loss (principal); R11.0 Nausea
CPT/HCPCS: 71250; 74176

== ENCOUNTER 2024-04-19 01:42 | Day surgery (SDC) | payer MEDICARE, BC, SELFPAY ==
[2024-04-04 12:55] VITALS: BMI 27.0
--- NOTE | 2024-04-19 08:46 | WPDANESEPPF ---
Anes - Initial Pre Proc Eval Procedure: Operation Date: 04/19/24 10:00 Proposed Procedures p Esophagogastroduodenoscopy - Phil Joseph MD Date/Time: 04/19/24 08:46 Surgeon: Phil Joseph MD Pre Op Diagnosis: Nausea, Abnormal wt. loss Patient Data Age: 78 Gender: M Height: 1.85 m Weight: 93 kg Allergies Allergy/AdvReac Type Severity Reaction Status Date / Time No Known Allergies Allergy Verified 03/18/24 14:30 Home Medications Medication Instructions Recorded Confirmed Type simvastatin 20 mg tablet See Rx Instructions .Route 06/03/22 04/04/24 Rx .COMPLEX #90 tabs allopurinol 300 mg tablet 300 mg PO DAILY #90 tabs 08/10/22 04/04/24 Rx cholecalciferol (vitamin D3) 25 25 mcg PO DAILY 10/10/23 04/04/24 History mcg (1,000 unit) capsule vitamin B complex 1 tablet PO DAILY 10/10/23 04/04/24 History amlodipine 10 mg-benazepril 40 mg See Rx Instructions .Route 03/25/24 04/04/24 Rx capsule .COMPLEX #90 caps metformin 1,000 mg tablet See Rx Instructions PO .COMPLEX 03/27/24 04/04/24 Rx #90 tabs Patient hx anesthesia problems: none Family hx anesthesia problems: none Results Review: All pre-operative results and documents have been reviewed as part of the pre-operative evaluation. [facility] Past Medical History Medical History Adenomatous colon polyp Aneurysm artery, hepatic (~07/2020) Colon cancer screening HLD (hyperlipidemia) HTN (hypertension) Lump in throat Neuropathy Positive colorectal cancer screening using Cologuard test Prostate cancer Type 2 diabetes mellitus without complication, without long-term current use of insulin Von Willebrand disease Surgical History Surgical History H/O right knee surgery H/O toe surgery History of appendectomy History of prostate surgery History of skin surgery basal cell removal History of surgery on arm History of tonsillectomy Hx of cataract surgery Family History Family History Mother Family history of Parkinson's disease Father Family history of congestive heart failure Sibling Cancer Social History Social History Years smoked: 30 Smoking status: Current every day smoker Tobacco type: cigars Smoking end date: 09/04/93 Additional smoking assessment comments: quit cigarettes 40 years ago, has daily cigar Alcohol intake: current Drinks per week: 4 Alcohol use details: 1 DRINK A DAY, SCOTCH Substance use: never Substance use type: does not use Lack of Transportation: No Lack of Food: Never True Current Housing: I Have Housing Concerned About Future Housing: No Difficulty Paying Gas/Electric Bills: No Difficulty Paying for Meds: No Currently Unemployed: No Education: High School Diploma/GED Difficulty w/ Childcare or Family Care: No Living arrangements: with family Gender identity (if verbalized by the patient): Male Spiritual care concerns: No Anes - Eval Final PreProcedure Day of Procedure 04/19/24 08:46 Patient weight: overweight Heart: regular rate and rhythm Lungs: clear to auscultation Airway: Mallampati scale class II Neurological: alert and oriented Last oral intake: >/= 8 hours ASA classification: III Emergent: no Anesthetic plan: proceed Anesthesia type and monitoring: general GIVS and standard monitoring Results Review: All pre-operative results and documents have been reviewed as part of the pre-operative evaluation. Informed Consent: The patient's anesthetic plan and its attendant risks and benefits were discussed with the patient/family/POA. Questions were solicited and answers provided to the satisfaction of the patient/family/POA.
[2024-04-19 08:48] VITALS: BP 122/67; PULSE 74; RESP 20; TEMP 35.8; O2SAT 98; BMI 25.9
[2024-04-19] MEDS: LACTATED RINGERS 1,000 ML 150 ML IV CONT (09:00)
--- NOTE | 2024-04-19 09:01 | PM.HPGS ---
History of Present Illness History of Present Illness Consent: Risks, benefits, and alternatives have been discussed and questions answered. Patient agrees to proceed with procedure. Chief complaint: Nausea, Abnormal wt. loss Narrative: Drake Patricio is a 78 year old male with lack of appetite and some weight loss, CT scan no major findings, here for egd. Last colonscopy 08/2022 Review of Systems Review of Systems: All systems reviewed & are unremarkable except as noted in HPI and below PMFSH Past Medical History Medical History Adenomatous colon polyp Aneurysm artery, hepatic (~07/2020) Colon cancer screening HLD (hyperlipidemia) HTN (hypertension) Lump in throat Neuropathy Positive colorectal cancer screening using Cologuard test Prostate cancer Type 2 diabetes mellitus without complication, without long-term current use of insulin Von Willebrand disease Surgical History Surgical History H/O right knee surgery H/O toe surgery History of appendectomy History of prostate surgery History of skin surgery basal cell removal History of surgery on arm History of tonsillectomy Hx of cataract surgery Family History Family History Mother Family history of Parkinson's disease Father Family history of congestive heart failure Sibling Cancer Social History Social History Years smoked: 30 Smoking status: Current every day smoker Tobacco type: cigars Smoking end date: 09/04/93 Additional smoking assessment comments: quit cigarettes 40 years ago, has daily cigar Alcohol intake: current Drinks per week: 4 Alcohol use details: 1 DRINK A DAY, SCOTCH Substance use: never Substance use type: does not use Lack of Transportation: No Lack of Food: Never True Current Housing: I Have Housing Concerned About Future Housing: No Difficulty Paying Gas/Electric Bills: No Difficulty Paying for Meds: No Currently Unemployed: No Education: High School Diploma/GED Difficulty w/ Childcare or Family Care: No Living arrangements: with family Gender identity (if verbalized by the patient): Male Spiritual care concerns: No Meds Home Medications and Allergies Home Medications Medication Instructions Recorded Confirmed Type simvastatin 20 mg tablet See Rx Instructions .Route 06/03/22 04/19/24 Rx .COMPLEX #90 tabs allopurinol 300 mg tablet 300 mg PO DAILY #90 tabs 08/10/22 04/19/24 Rx cholecalciferol (vitamin D3) 25 25 mcg PO DAILY 10/10/23 04/19/24 History mcg (1,000 unit) capsule vitamin B complex 1 tablet PO DAILY 10/10/23 04/19/24 History amlodipine 10 mg-benazepril 40 mg See Rx Instructions .Route 03/25/24 04/19/24 Rx capsule .COMPLEX #90 caps metformin 1,000 mg tablet See Rx Instructions PO .COMPLEX 03/27/24 04/19/24 Rx #90 tabs Allergies Allergy/AdvReac Type Severity Reaction Status Date / Time No Known Allergies Allergy Verified 04/19/24 08:47 Vital Signs Vital Signs - 24 hr 04/19/24 08:48 Temperature 96.4 F L Pulse Rate 74 Respiratory Rate 20 Blood Pressure 122/67 Pulse Oximetry 98 Oxygen Delivery Room Air Exam Const: General: comfortable and no acute distress HENMT: Face/Nose/Sinus: Normal nares present Eyes: General: appearance normal, both eyes and all related structures Neck: Neck: no JVD Resp: Auscultation: clear to auscultation bilaterally Cardio: Rate: regular rate Rhythm: regular rhythm GI: Inspection: non-distended GI Palp: Yes Soft to palpation Skin: General skin exam: normal color Neuro: General: gait normal Speech: normal speech Extrem: General: normal to inspection Psych: Mental Status: mental status grossly normal Assessment and Plan Assessment and plan (1) Unintentional weig
[2024-04-19 09:04] LABS: Glucose Point of Care 165 mg/dl (65-105)
[2024-04-19 09:10] VITALS: BP 117/54; PULSE 67; RESP 24; O2SAT 96
[2024-04-19 09:20] VITALS: BP 99/50; PULSE 67; RESP 24; O2SAT 93
[2024-04-19 09:30] VITALS: BP 118/55; PULSE 61; RESP 20; O2SAT 98
== END 2024-04-19 09:43 | disposition home or self-care (01) ==
PROVIDERS: PCP Internal Medicine; Referring Provider Nurse Practitioner; Visit Provider Internal Medicine Gastroenterology
PROC: 0DJ08ZZ Inspection of Upper Intestinal Tract, Via Natural or Artificial Opening Endoscopic (ICD-10-PCS; CPT 43235; principal; 2024-04-19 10:00)
DX: K29.50 Unspecified chronic gastritis without bleeding (principal); K31.A0 Gastric intestinal metaplasia, unspecified; R11.0 Nausea; R63.4 Abnormal weight loss; Z87.891 Personal history of nicotine dependence; E78.5 Hyperlipidemia, unspecified; I10 Essential (primary) hypertension; Z85.46 Personal history of malignant neoplasm of prostate; E11.9 Type 2 diabetes mellitus without complications; D68.00 Von Willebrand disease, unspecified; Z86.010 Personal history of colon polyps
CPT/HCPCS: 43239; 82948; 88305; J7120

== ENCOUNTER 2024-06-04 14:50 | Outpatient (CLI) | payer MEDICARE, BC, SELFPAY ==
[2024-06-04 20:00] LABS: Hemoglobin A1C 7.6 % (<5.7)
[2024-06-04 20:09] LABS: Basophils Percent Auto 0.4 % (0.2-1.2); Eosinophils Percent Auto 0.4 % (0-4.4); Hematocrit 37.6 % (42.0-52.0); Hemoglobin 11.4 g/dL (14.0-18.0); Immature Granulocyte Absolute 0.08 K/mm3 (0.00-0.031); Immature Granulocyte Percent A 0.9 % (0-0.5); Lymphocytes Absolute Auto 1.14 K/mm3 (0.9-3.2); Lymphocytes Percent Auto 13.3 % (18.3-44.2); Mean Corpuscular HGB Conc 30.3 g/dl (32-36); Mean Corpuscular Volume 89.1 fl (80-100); Mean Platelet Volume 9.5 fl (7.4-10.4); Monocytes Absolute Auto 1.1 K/mm3 (0.1-0.6); Monocytes Percent Auto 13.3 % (2.6-8.5); Neutrophils Absolute Auto 6.1 K/mm3 (1.3-6.7); Neutrophils Percent Auto 71.7 % (45.5-73.1); Platelet Count Result 362 k/mm3 (150-375); Red Blood Count 4.22 M/mm3 (4.6-6.20); Red Cell Distribution Width 14.1 % (11.5-14.5); White Blood Count 8.5 K/mm3 (4.5-10.0)
[2024-06-04 20:23] LABS: Alanine Aminotransferase 26 U/L (6-50); Anion Gap 6 mmol/L (4-12); Aspartate Amino Transferase 24 U/L (17-59); Bilirubin,Total 0.2 mg/dL (0.2-1.3); Blood Urea Nitrogen 27 mg/dL (9-20); Calcium 12.1 mg/dL (8.4-10.2); Carbon Dioxide 32 mmol/L (22-30); Chloride 98 mmol/L (98-107); Estimated Glomerular Filt Rate > 60; Glucose 174 mg/dL (65-110); Potassium 4.5 mmol/L (3.4-5.0); Sodium 136 mmol/L (137-145)
[2024-06-04 20:24] LABS: Albumin Level 3.5 g/dL (3.5-5.1); Alkaline Phosphatase 58 U/L (38-126)
[2024-06-04 20:57] LABS: Erythrocyte Sedimentation Rate 53 mm/hr (0-20)
[2024-06-04 20:58] LABS: Add Urine Microscopic? YES; Appearance Urine Clear (Clear); Bacteria Urine None Seen /hpf; Bilirubin Urine Negative (Negative); Blood Urine Negative (Negative); Color Urine Dark Yellow (Yellow); Glucose Urine UA Trace mg/dL (Negative); Hyaline Casts Urine Present /lpf; Ketones Urine Trace mg/dL (Negative); Leukocyte Esterase Ur Negative LEU/UL (Negative); Mucus Urine Present /lpf; Need Manual Microscopic Reviewed; Nitrate Urine Negative (Negative); Protein Urine 1+ mg/dL (Negative); RBC Urine 0-2 /hpf (0-2); Specific Grav Ur 1.025 (1.001-1.035); Squamous Epithelial Cell Urine None Seen /hpf (Few); WBC Urine 0-5 /hpf (0-3); pH Urine 5.5 (5.0-9.0)
[2024-06-05 16:16] LABS: Parathyroid Intact < 14.5 pg/mL (14.5-75.2)
[2024-06-10 12:34] LABS: Testosterone Free 25.6 pg/mL (30.0-135.0); Testosterone Total 152 ng/dL (250-1100)
== END 2024-06-04 14:51 | disposition home or self-care (01) ==
PROVIDERS: PCP Internal Medicine; Visit Provider Internal Medicine
DX: M62.84 Sarcopenia (principal); R61 Generalized hyperhidrosis; R63.4 Abnormal weight loss; F32.89 Other specified depressive episodes; E11.9 Type 2 diabetes mellitus without complications; I10 Essential (primary) hypertension; R68.81 Early satiety; R35.1 Nocturia
CPT/HCPCS: 36415; 80053; 81001; 82728; 83036; 83970; 84402; 84403; 84443; 85025; 85652

== ENCOUNTER 2024-06-07 09:17 | Outpatient (CLI) | payer MEDICARE, BC, SELFPAY ==
[2024-06-07 16:39] LABS: Calcium 9.9 mg/dL (8.4-10.2)
[2024-06-07 17:05] LABS: Vitamin D 25 Hydroxy 43.7 ng/mL
[2024-06-08 10:34] LABS: Protein, Total 7.3 g/dL (6.1-8.1)
[2024-06-08 11:39] LABS: Ionized Calcium 5.2 mg/dL (4.7-5.5)
[2024-06-09 07:18] LABS: Creatinine, Random Urine 170 mg/dL (20-320); Total Prot/Creat ratio mg/mg 0.329 (0.025-0.148); Total Protein/Creatinine Ratio 329 mg/g creat (25-148)
[2024-06-10 11:58] LABS: Kappa\\Lambda Light Chains 1.58 (0.26-1.65); Lambda Light Chain 43.8 mg/L (5.7-26.3)
[2024-06-12 12:03] LABS: Alpha 1 Globulin 0.6 g/dL (0.2-0.3); Alpha 2 Globulin 1.3 g/dL (0.5-0.9); Beta 1 Globulin 0.5 g/dL (0.4-0.6); Gamma Globulin 1.3 g/dL (0.8-1.7)
[2024-06-12 16:42] LABS: Parathyroid Hormone Related Pr 8 pg/mL (11-20)
[2024-06-12 17:38] LABS: Vitamin D 1,25 (OH)2 Total 37 pg/mL (18-72); Vitamin D2 1,25 (OH)2 <8 pg/mL; Vitamin D3 1,25 (OH)2 37 pg/mL
== END 2024-06-07 09:18 | disposition home or self-care (01) ==
PROVIDERS: PCP Internal Medicine; Visit Provider Internal Medicine
DX: E83.52 Hypercalcemia (principal); R61 Generalized hyperhidrosis; R63.4 Abnormal weight loss; E11.9 Type 2 diabetes mellitus without complications
CPT/HCPCS: 36415; 82306; 82310; 82330; 82570; 82652; 83519; 83883; 84155; 84156; 84165; 84166

== ENCOUNTER 2024-06-10 12:36 | Outpatient (CLI) | payer MEDICARE, BC, SELFPAY ==
--- NOTE | ~2024-06-10 | CT_ITS ---
Clinical Indication: Generalized hyperhidrosis CT Scan of the Chest, Abdomen, and Pelvis with Contrast: Technique: Contiguous sections were acquired throughout the chest, abdomen, and pelvis after intraven ous administration of 100 cc of Omnipaque 350. Dose reduction technique was used on this scan by umer oliva automated exposure control and iterative reconstruction technique. The dose-length product (DL P) was 1008.66 mGy-cm. Comparison: 03/21/2024 Findings: There is no evidence of any significant mediastinal, hilar or axillary lymphadenopathy. There are ath erosclerotic ossifications of the aorta and coronary arteries. No aortic aneurysm or dissection seen. There is no evidence of pleural or pericardial effusion. The lungs are clear. No pulmonary nodules or infiltrates are noted. 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 There is a 7.0 x 5.2 cm heterogeneously enhan cing mass in the upper renal moiety, compatible with renal cell carcinoma (axial image 138). Renal cy sts are present. No hydronephrosis. The liver, pancreas, gallbladder, and right adrenal gland are within normal limits. Stable small left adrenal nodule, dating back to 2020. Calcified splenic granulomas are present. 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 There are atheroscler otic calcifications of the aorta. Minimally prominent peripancreatic lymph nodes are stable from prio r exam.. No bowel obstruction or bowel wall thickening. There is no evidence to suggest acute appendicitis. Urinary bladder is unremarkable. Fat-containing bilateral inguinal hernias are present. Impression: 7.0 x 5.2 cm heterogeneous enhancing the upper renal moiety on the right side is compatible with buster l cell carcinoma. No definite evidence for metastatic disease. Minimal prominent peripancreatic lymph nodes are unchang ed from prior exam. Procedure using orthopedic, unchanged from prior exam. Multiple renal cysts. Reviewed, dictated and finalized at location M. Impression: 7.0 x 5.2 cm heterogeneous enhancing the upper renal moiety on the right side i s compatible with renal cell carcinoma. No definite evidence for metastatic disease. Minimal prominent peripancreatic l ymph nodes are unchanged from prior exam. Procedure using orthopedic, unchanged from prior exam. Multiple renal cysts.
[2024-06-10 13:01] LABS: Estimated Glomerular Filt Rate > 60
== END 2024-06-10 12:37 | disposition home or self-care (01) ==
LOC: MICIMG 12:38
PROVIDERS: PCP Internal Medicine; Visit Provider Internal Medicine
DX: R61 Generalized hyperhidrosis (principal); R11.0 Nausea; R63.4 Abnormal weight loss; R68.81 Early satiety
CPT/HCPCS: 71260; 74177; Q9967

== ENCOUNTER 2024-06-14 08:13 | Emergency (ER) | payer MEDICARE, BC, SELFPAY ==
[2024-06-14 09:06] LABS: Basophils Percent Auto 0.4 % (0.2-1.2); Eosinophils Percent Auto 0.6 % (0-4.4); Hematocrit 35.2 % (42.0-52.0); Hemoglobin 11.2 g/dL (14.0-18.0); Immature Granulocyte Absolute 0.02 K/mm3 (0.00-0.031); Immature Granulocyte Percent A 0.4 % (0-0.5); Lymphocytes Percent Auto 13.1 % (18.3-44.2); Mean Corpuscular HGB Conc 31.8 g/dl (32-36); Mean Corpuscular Hemoglobin 27.6 pg (26-34); Mean Corpuscular Volume 86.7 fl (80-100); Mean Platelet Volume 8.9 fl (7.4-10.4); Monocytes Absolute Auto 0.7 K/mm3 (0.1-0.6); Monocytes Percent Auto 13.1 % (2.6-8.5); Neutrophils Absolute Auto 3.9 K/mm3 (1.3-6.7); Neutrophils Percent Auto 72.4 % (45.5-73.1); Platelet Count Result 276 k/mm3 (150-375); Red Blood Count 4.06 M/mm3 (4.6-6.20); Red Cell Distribution Width 14.1 % (11.5-14.5); White Blood Count 5.4 K/mm3 (4.5-10.0)
[2024-06-14 09:10] LABS: Anion Gap 8 mmol/L (4-12); Blood Urea Nitrogen 9 mg/dL (9-20); Calcium 9.3 mg/dL (8.4-10.2); Carbon Dioxide 28 mmol/L (22-30); Chloride 99 mmol/L (98-107); Estimated CRCL calculation 82 ml/min; Estimated Glomerular Filt Rate > 60; Glucose 169 mg/dL (65-110); Potassium 3.7 mmol/L (3.4-5.0); Sodium 135 mmol/L (137-145)
[2024-06-14 09:27] LABS: Add Urine Microscopic? YES; Appearance Urine Cloudy (Clear); Bacteria Urine None Seen /hpf; Bilirubin Urine Negative (Negative); Blood Urine 3+ (Negative); Color Urine Yellow (Yellow); Glucose Urine UA Negative (Negative); Ketones Urine 1+ mg/dL (Negative); Leukocyte Esterase Ur Trace LEU/UL (Negative); Nitrate Urine Negative (Negative); Non Pathogenic Casts 0-2; Protein Urine 2+ mg/dL (Negative); RBC Urine >100 /hpf (0-2); Specific Grav Ur 1.014 (1.001-1.035); Squamous Epithelial Cell Urine None Seen /hpf (Few); WBC Urine 0-5 /hpf (0-3); pH Urine 7.5 (5.0-9.0)
[2024-06-14 09:55] VITALS: BP 102/59; PULSE 70; RESP 18; O2SAT 96
[2024-06-14] MEDS: TAMSULOSIN HCL 0.4 MG CAPSULE PO (10:06)
--- NOTE | 2024-06-14 10:10 | ED_ITS ---
HPI - Male Genitourinary General Chief complaint: Urogenital-Male Stated complaint: URINARY SYMPTOMS Time Seen by Provider: 06/14/24 08:16 History of Present Illness HPI Narrative: Patient was recently diagnosed with renal cell carcinoma, since last night he has been having trouble urinating, just dribbles some blood. Some pressure in his bladder Related Data Home Medications Medication Instructions Recorded Confirmed cholecalciferol (vitamin D3) 25 25 mcg PO DAILY 10/10/23 06/04/24 mcg (1,000 unit) capsule Allergies Allergy/AdvReac Type Severity Reaction Status Date / Time No Known Allergies Allergy Verified 06/04/24 13:58 Review of Systems Review of Systems: All systems reviewed & are unremarkable except as noted in HPI and below PMFSH Past Medical History Medical History Adenomatous colon polyp Aneurysm artery, hepatic (~07/2020) Colon cancer screening HLD (hyperlipidemia) HTN (hypertension) Lump in throat Neuropathy Positive colorectal cancer screening using Cologuard test Prostate cancer Type 2 diabetes mellitus without complication, without long-term current use of insulin Von Willebrand disease Surgical History Surgical History H/O right knee surgery H/O toe surgery History of appendectomy History of prostate surgery History of skin surgery basal cell removal History of surgery on arm History of tonsillectomy Hx of cataract surgery Family History Family History Mother Family history of Parkinson's disease Father Family history of congestive heart failure Sibling Cancer Social History Social History (Updated 06/04/24 @ 14:02 by Eli Yu [facility]) Years smoked: 30 Smoking status: Current every day smoker Tobacco type: cigars Smoking end date: 09/04/93 Additional smoking assessment comments: quit cigarettes 40 years ago, has daily cigar Alcohol intake: current Drinks per week: 4 Alcohol use details: 1 DRINK A DAY, [place] Substance use: never Substance use type: does not use Do You Feel Safe in your Home?: Yes Lack of Transportation: No Lack of Food: Never True Current Housing: I Have Housing Concerned About Future Housing: No Difficulty Paying Gas/Electric Bills: No Difficulty Paying for Meds: No Currently Unemployed: No Education: High School Diploma/GED Difficulty w/ Childcare or Family Care: No Living arrangements: with family Gender identity (if verbalized by the patient): Male Spiritual care concerns: No Exam Narrative: EXAMINATION OF ORGAN SYSTEMS/BODY AREAS: Constitutional: Vital signs per nursing GENERAL:[No acute distress, non-toxic appearing.] HEAD: Normal with no signs of head trauma. EYES: EOMI, conjunctiva normal ENT: Hearing grossly intact LUNGS: Nonlabored breathing. HEART: [Regular rate and rhythm] ABD: [Soft], [nontender to palpation] EXT: Normal range of motion SKIN: [No rashes or lesions.] NEURO: [Alert and oriented x 3. No gross focal sensory or strength deficits.] PSYCH: Normal affect Course Vital Signs Vital signs: Vital Signs Pulse Rate 70 06/14/24 09:55 Respiratory Rate 18 06/14/24 09:55 Blood Pressure 102/59 L 06/14/24 09:55 Pulse Oximetry 96 06/14/24 09:55 Pulse Rate 70 06/14/24 09:55 Respiratory Rate 18 06/14/24 09:55 Blood Pressure 102/59 L 06/14/24 09:55 Pulse Oximetry 96 06/14/24 09:55 MDM - Male Genitourinary MDM Narrative Medical decision making narrative: Patient presents with urinary retention, was recently diagnosed with renal cell carcinoma. Bladder ultrasound did confirm retained urine, Rockwell placed with initially bloody urine that cleared up, with some small clots, patient's pain is relieved, urinalysis does not show signs of UTI, creatinine normal, he is given follow-up to Urology, I will start him on Flomax and he is given return precautions. Patient and at bedside agreeable to plan Lab Data 06/14/24 08:55 06/14/24 08:55 Labs: Lab Results 06/14/24 Range/Units 08:55 WBC 5.4 (4.5-10.0) K/mm3 RBC 4.06 L (4.6-6.20) M/mm3 Hgb 11.2 L (14.0-18.0) g/dL Hct 35.2 L (42.0-52.0) % MCV 86.7 (80-100) fl MCH 27.6 (26-34) pg MCHC 31.8 L (32-36) g/dl RDW 14.1 (11.5-14.5) % Plt Count 276 (150-375) k/mm3 MPV 8.9 (7.4-10.4) fl Immature Gran % (Auto) 0.4 (0-0.5) % Neut % (Auto) 72.4 (45.5-73.1) % Lymph % (Auto) 13.1 L (18.3-44.2) % [place] % (Auto) 13.1 H (2.6-8.5) % Eos % (Auto) 0.6 (0-4.4) % Baso % (Auto) 0.4 (0.2-1.2) % Lymph # (Auto) 0.70 L (0.9-3.2) K/mm3 [place] # (Auto) 0.7 H (0.1-0.6) K/mm3 Eos # (Auto) 0.0 (0-0.3) K/mm3 Baso # (Auto) 0.0 (0.0-0.1) K/mm3 Abs Immat Gran (auto) 0.02 (0.00-0.031) K/mm3 Absolute Neuts (auto) 3.9 (1.3-6.7) K/mm3 Absolute Nucleated RBC 0.000 (0.0-0.012) K/mm3 Nucleated RBC % 0.0 (0.0-0.2) % Sodium 135 L (137-145) mmol/L Potassium 3.7 (3.4-5.0) mmol/L Chloride 99 (98-107) mmol/L Carbon Dioxide 28 (22-30) mmol/L Anion Gap 8 (4-12) mmol/L BUN 9 D (9-20) mg/dL Creatinine 0.70 (0.7-1.3) mg/dL Estim Creat Clear Calc 82 ml/min Estimated GFR > 60 (59 - ) Glucose 169 H (65-110) mg/dL Calcium 9.3 (8.4-10.2) mg/dL Urine Color Yellow (Yellow) Urine Appearance Cloudy H (Clear) Urine pH 7.5 (5.0-9.0) Ur Specific [place] 1.014 (1.001-1.035) Urine Protein 2+ H (Negative) mg/dL Urine Glucose (UA) Negative (Negative) mg/dL Urine Ketones 1+ H (Negative) mg/dL Ur Blood (Man) 3+ H (Negative) Urine Nitrate Negative (Negative) Urine Bilirubin Negative (Negative) Urine Urobilinogen 1.0 (<2.0) mg/dL Leukocyte Esterase Rfl Trace H (Negative) GAYE/UL Urine RBC >100 H (0-2) /hpf Urine WBC 0-5 (0-3) /hpf Ur Squamous Epith Cells None seen (Few) /hpf Urine Bacteria None seen /hpf Urine Casts 0-2 Discharge Plan Discharge Clinical Impression: Acute urinary retention, Hematuria Patient Disposition: Home, Self-Care Condition: Stable Instructions: Antibiotic Form, Rockwell Catheter Placement and Care (ED) Prescriptions: New tamsulosin [Flomax] 0.4 mg capsule 0.4 mg PO DAILY Qty: 20 0RF No Action cholecalciferol (vitamin D3) 25 mcg (1,000 unit) capsule 25 mcg PO DAILY pantoprazole [Protonix] 20 mg tablet,delayed release (DR/EC) 20 mg PO QAM Qty: 90 1RF ondansetron HCl 4 mg tablet 4 mg PO Q6H PRN (Reason: nausea and vomiting) Qty: 30 1RF sertraline 25 mg tablet 50 mg PO DAILY Qty: 90 0RF amlodipine-benazepril 10-40 mg capsule See Rx Instructions .ROUTE .COMPLEX Qty: 90 1RF Dose Instruction: TAKE 1 CAPSULE DAILY Rx Instructions: TAKE 1 CAPSULE DAILY metformin 1,000 mg tablet See Rx Instructions PO .COMPLEX Qty: 90 1RF Dose Instruction: TAKE 1 TABLET DAILY Rx Instructions: TAKE 1 TABLET DAILY allopurinol 300 mg tablet 300 mg PO DAILY Qty: 90 1RF simvastatin 20 mg tablet See Rx Instructions .ROUTE .COMPLEX Qty: 90 1RF Dose Instruction: TAKE 1 TABLET DAILY Rx Instructions: TAKE 1 TABLET DAILY Follow-up/Referrals: Cristhian Figueroa MD [Physician] - 2 Days Campos Rico DO [Primary Care Provider] - 2 Days
--- NOTE | 2024-06-14 10:15 | PC.NURSE ---
Leg bag applied to indwelling grant catheter. Education given with demonstration, no questions upon d/c.
[2024-06-14 10:25] VITALS: TEMP 36.6
== END 2024-06-14 10:27 | disposition home or self-care (01) ==
PROVIDERS: Emergency Provider Emergency Medicine; PCP Internal Medicine
DX: R33.9 Retention of urine, unspecified (principal); R31.9 Hematuria, unspecified; C64.9 Malignant neoplasm of unspecified kidney, except renal pelvis; I10 Essential (primary) hypertension; E78.5 Hyperlipidemia, unspecified; E11.40 Type 2 diabetes mellitus with diabetic neuropathy, unspecified; D68.00 Von Willebrand disease, unspecified; F17.290 Nicotine dependence, other tobacco product, uncomplicated; Z85.46 Personal history of malignant neoplasm of prostate; Z86.0101 Personal history of adenomatous and serrated colon polyps; Z85.828 Personal history of other malignant neoplasm of skin; Z98.49 Cataract extraction status, unspecified eye; Z79.84 Long term (current) use of oral hypoglycemic drugs; Z79.899 Other long term (current) drug therapy; Y84.6 Urinary catheterization as the cause of abnormal reaction of the patient, or of later complication, without mention of misadventure at the time of the procedure
CPT/HCPCS: 36415; 51702; 80048; 81001; 85025; 99284; A9270

== ENCOUNTER 2024-06-14 16:02 | Emergency (ER) | payer MEDICARE, BC, SELFPAY ==
[2024-06-14 16:20] VITALS: BP 132/67; PULSE 78; RESP 16; TEMP 36.7; O2SAT 98
--- NOTE | 2024-06-14 16:39 | ED_ITS ---
HPI - Male Genitourinary General Chief complaint: Urogenital-Male Stated complaint: catheter not draining Time Seen by Provider: 06/14/24 16:18 Source: patient and family Mode of arrival: ambulatory Limitations: no limitations History of Present Illness HPI Narrative: 78 years old white male came from home by private car complaining that the Rockwell catheter not draining and urine coming around it. Patient came to our emergency room at 8:00 a.m. this morning with hematuria, Rockwell catheter was placed, few hours later the catheter was not draining in the bag and urine coming around. Patient had recent diagnosis of renal cell carcinoma 3 days ago, scheduled to see a urologist at [facility] in 4 days. Related Data Home Medications Medication Instructions Recorded Confirmed cholecalciferol (vitamin D3) 25 25 mcg PO DAILY 10/10/23 06/04/24 mcg (1,000 unit) capsule Allergies Allergy/AdvReac Type Severity Reaction Status Date / Time No Known Allergies Allergy Verified 06/14/24 16:03 Review of Systems Review of Systems: All systems reviewed & are unremarkable except as noted in HPI and below PMFSH Past Medical History Medical History Adenomatous colon polyp Aneurysm artery, hepatic (~07/2020) Colon cancer screening HLD (hyperlipidemia) HTN (hypertension) Lump in throat Neuropathy Positive colorectal cancer screening using Cologuard test Prostate cancer Type 2 diabetes mellitus without complication, without long-term current use of insulin Von Willebrand disease Surgical History Surgical History H/O right knee surgery H/O toe surgery History of appendectomy History of prostate surgery History of skin surgery basal cell removal History of surgery on arm History of tonsillectomy Hx of cataract surgery Family History Family History Mother Family history of Parkinson's disease Father Family history of congestive heart failure Sibling Cancer Social History Social History Years smoked: 30 Smoking status: Current every day smoker Tobacco type: cigars Smoking end date: 09/04/93 Additional smoking assessment comments: quit cigarettes 40 years ago, has daily cigar Alcohol intake: current Drinks per week: 4 Alcohol use details: 1 DRINK A DAY, [place] Substance use: never Substance use type: does not use Do You Feel Safe in your Home?: Yes Lack of Transportation: No Lack of Food: Never True Current Housing: I Have Housing Concerned About Future Housing: No Difficulty Paying Gas/Electric Bills: No Difficulty Paying for Meds: No Currently Unemployed: No Education: High School Diploma/GED Difficulty w/ Childcare or Family Care: No Living arrangements: with family Gender identity (if verbalized by the patient): Male Spiritual care concerns: No Exam Narrative: General appearance: Well-developed, well-nourished Skin: Normal color Head: Normocephalic, nontraumatic Chest and respiratory: Airway patent, no respiratory distress, no accessory muscle use Heart: Regular rate/rhythm Abdomen: Soft, Slight tenderness suprapubic area, Rockwell catheter bag is empty Neurologic: Alert and oriented ?3, SIGNS CLEANER is normal as tested, no gross motor deficit Course Vital Signs Vital signs: Vital Signs Temperature 36.7 C 06/14/24 16:20 Pulse Rate 78 06/14/24 16:20 Respiratory Rate 16 06/14/24 16:20 Blood Pressure 132/67 06/14/24 16:20 Pulse Oximetry 98 06/14/24 16:20 Temperature 36.7 C 06/14/24 16:20 Pulse Rate 78 06/14/24 16:20 Respiratory Rate 16 06/14/24 16:20 Blood Pressure 132/67 06/14/24 16:20 Pulse Oximetry 98 06/14/24 16:20 MDM - Male Genitourinary MDM Narrative Medical decision making narrative: patient came from home with trouble urinating through the Rockwell catheter, urine coming around the catheter Vital signs are stable Physical examination showed MT Rockwell catheter bag, urine leaking out of the penis Irrigated Rockwell catheter showed good return, normal looking urine, no bloody urine, patient tolerated the procedure well. Patient will be discharged with irrigated supplement to help him to avoid, back to the emergency room. Patient feeling great at the time of discharge Patient was advised to call his urologist at [facility] for early appointment Critical Care Time Critical Care Time Critical Care Time: No Discharge Plan Discharge Clinical Impression: H/O urinary retention, Complication, blocked Rockwell catheter Patient Disposition: Home, Self-Care Condition: Improved Instructions: Urinary Retention in Men (ED), Rockwell Catheter Placement and Care (ED) Additional Instructions: Return if symptoms are worsening , call your urologist for early appointment, take Tylenol as as needed for aches and pain, continue home medications. Prescriptions: New flavoxate 100 mg tablet 100 mg PO QID Qty: 20 0RF No Action cholecalciferol (vitamin D3) 25 mcg (1,000 unit) capsule 25 mcg PO DAILY pantoprazole [Protonix] 20 mg tablet,delayed release (DR/EC) 20 mg PO QAM Qty: 90 1RF ondansetron HCl 4 mg tablet 4 mg PO Q6H PRN (Reason: nausea and vomiting) Qty: 30 1RF sertraline 25 mg tablet 50 mg PO DAILY Qty: 90 0RF tamsulosin [Flomax] 0.4 mg capsule 0.4 mg PO DAILY Qty: 20 0RF amlodipine-benazepril 10-40 mg capsule See Rx Instructions .ROUTE .COMPLEX Qty: 90 1RF Dose Instruction: TAKE 1 CAPSULE DAILY Rx Instructions: TAKE 1 CAPSULE DAILY metformin 1,000 mg tablet See Rx Instructions PO .COMPLEX Qty: 90 1RF Dose Instruction: TAKE 1 TABLET DAILY Rx Instructions: TAKE 1 TABLET DAILY allopurinol 300 mg tablet 300 mg PO DAILY Qty: 90 1RF simvastatin 20 mg tablet See Rx Instructions .ROUTE .COMPLEX Qty: 90 1RF Dose Instruction: TAKE 1 TABLET DAILY Rx Instructions: TAKE 1 TABLET DAILY Follow-up/Referrals: Campos Rico, [Primary Care Provider] -
[2024-06-14] MEDS: NACL 0.9% IRRIGATION POUR BOTTLE 500 ML (16:53)
== END 2024-06-14 17:40 | disposition home or self-care (01) ==
LOC: ANHED 17:39
PROVIDERS: Emergency Provider Emergency Medicine; PCP Internal Medicine
DX: T83.091A Other mechanical complication of indwelling urethral catheter, initial encounter (principal); R33.9 Retention of urine, unspecified; C64.9 Malignant neoplasm of unspecified kidney, except renal pelvis; I10 Essential (primary) hypertension; E78.5 Hyperlipidemia, unspecified; E11.40 Type 2 diabetes mellitus with diabetic neuropathy, unspecified; D68.00 Von Willebrand disease, unspecified; F17.290 Nicotine dependence, other tobacco product, uncomplicated; Z85.46 Personal history of malignant neoplasm of prostate; Z86.0101 Personal history of adenomatous and serrated colon polyps; Z85.828 Personal history of other malignant neoplasm of skin; Z98.49 Cataract extraction status, unspecified eye; Z79.84 Long term (current) use of oral hypoglycemic drugs; Z79.899 Other long term (current) drug therapy; Y84.6 Urinary catheterization as the cause of abnormal reaction of the patient, or of later complication, without mention of misadventure at the time of the procedure
CPT/HCPCS: 99282

== ENCOUNTER 2025-07-18 13:20 | Emergency (ER) | payer MEDICARE, BC, SELFPAY ==
--- NOTE | 2025-07-18 13:21 | ED_ITS ---
HPI - Extremity Problem General Chief complaint: Extremity Injury, Upper Stated complaint: swollen elbow and arm Time Seen by Provider: 07/18/25 13:21 Source: patient Mode of arrival: ambulatory Limitations: no limitations History of Present Illness HPI Narrative: Drake is a 79 year old male patient presenting to the clinic today with c/o right elbow swelling x 2 days. He reports no fevers, chills, body aches. Area is not painful. No known injury. Does have history of gout. No erythema or tenderness to palpation over the elbow. Denies any treatment. Related Data Allergies Allergy/AdvReac Type Severity Reaction Status Date / Time No Known Allergies Allergy Verified 07/18/25 13:34 Review of Systems Review of Systems: Pertinent positives per HPI. Patient denies any fever, chills, rash, headache, visual changes, dizziness, cough, runny nose, sore throat, shortness of breath, chest pain, palpitations, nausea, vomiting, diarrhea, constipation, abdominal pain, or any urinary issues. [facility] Past Medical History Medical History Adenomatous colon polyp Positive colorectal cancer screening using Cologuard test Neuropathy Colon cancer screening Von Willebrand disease Lump in throat Aneurysm artery, hepatic (~07/2020) HLD (hyperlipidemia) Prostate cancer HTN (hypertension) Type 2 diabetes mellitus without complication, without long-term current use of insulin Surgical History Surgical History History of partial nephrectomy (~06/2024) H/O toe surgery History of surgery on arm Hx of cataract surgery History of tonsillectomy History of skin surgery basal cell removal History of appendectomy H/O right knee surgery History of prostate surgery Family History Family History Mother Family history of Parkinson's disease Father Family history of congestive heart failure Sibling Cancer Social History Social History Years smoked: 30 Smoking status: Current every day smoker Tobacco type: cigars Smoking end date: 09/04/93 Additional smoking assessment comments: quit cigarettes 40 years ago, has daily cigar Alcohol intake: current Drinks per week: 4 Alcohol use details: 1 DRINK A DAY, [facility] Substance use: never Substance use type: does not use Do You Feel Safe in your Home?: Yes Lack of Transportation: No Lack of Food: Never True Current Housing: I Have Housing Concerned About Future Housing: No Difficulty Paying Gas/Electric Bills: No Difficulty Paying for Meds: No Currently Unemployed: No Education: High School Diploma/GED Difficulty w/ Childcare or Family Care: No Living arrangements: with family Gender identity (if verbalized by the patient): Male Spiritual care concerns: No Comments At the time of my signature, I reviewed and agree with the nursing past medical, surgical, social, and family history. There is no relevant family history pertinent to the patient complaint. Exam Narrative: General: Well-developed, well nourished, in no apparent distress Head: Normocephalic, atraumatic. Cardio: Regular rate and rhythm, s1 and s2 normal, no murmur appreciated. Resp: Clear to auscultation bilaterally, no rhonchi, rales, wheezing or rubs. Musculoskeletal: No deformity, swelling/fluctuance to the right elbow consistent with bursitis. No redness, erythema, or tenderness to palpation, grossly normal range of motion, muscle strength strong and equal, peripheral pulse strong, no edema, no cyanosis, normal gait and station Course Course Emergency Course: Portions of this record may have been created with voice recognition software. Level of Care: Express Care Visit Vital Signs Vital signs: Vital Signs Temperature 36.7 C 07/18/25 13:27 Pulse Rate 82 07/18/25 13:27 Respiratory Rate 16 07/18/25 13:27 Blood Pressure 155/64 H 07/18/25 13:27 Pulse Oximetry 95 07/18/25 13:27 Oxygen Delivery Room Air 07/18/25 13:27 Temperature 36.7 C 07/18/25 13:27 Pulse Rate 82 07/18/25 13:27 Respiratory Rate 16 07/18/25 13:27 Blood Pressure 155/64 H 07/18/25 13:27 Pulse Oximetry 95 07/18/25 13:27 Oxygen Delivery Room Air 07/18/25 13:27 Vital signs reviewed MDM - Extremity (Nontraumatic) MDM Narrative Medical decision making narrative: At the time of visit patient is resting comfortably on the exam table. Patient appears to be nontoxic. C/o right elbow swelling x 2 days. He reports no fevers, chills, body aches. Area is not painful. No known injury. Does have history of gout. No erythema or tenderness to palpation over the elbow. Denies any treatment.On exam patient has swelling/fluctuance to the right elbow consistent with bursitis. No redness, erythema, or tenderness to palpation. Plan: I suspect patient has olecranon bursitis. Nino wrap and ice pack given to the patient. Supportive measures were discussed with the patient and they voiced understanding discharge instructions and agrees to treatment plan. Return precautions reviewed Differential Diagnosis Differential diagnosis: Likely gout, cellulitis and deep venous thrombosis of upper extremity Discharge Plan Discharge Clinical Impression: Olecranon bursitis Qualifiers: Laterality: right Qualified Code(s): M70.21 - Olecranon bursitis, right elbow Patient Disposition: Home Condition: Stable Instructions: Antibiotic Form, Elbow Bursitis (ED) Additional Instructions: Olecranon bursitis does not appear to be red or erythemic Rest, ice, and compress May take Tylenol/Motrin as needed for any pain Follow-up with your primary care doctor as needed Patient Language: Czech Prescriptions: No Action simvastatin 20 mg tablet See Rx Instructions .ROUTE .COMPLEX Qty: 90 1RF Dose Instruction: TAKE 1 TABLET DAILY Rx Instructions: TAKE 1 TABLET DAILY metformin 1,000 mg tablet See Rx Instructions PO .COMPLEX Qty: 90 1RF Dose Instruction: TAKE 1 TABLET DAILY Rx Instructions: TAKE 1 TABLET DAILY allopurinol 300 mg tablet 300 mg PO DAILY Qty: 90 1RF amlodipine-benazepril 10-40 mg capsule See Rx Instructions .ROUTE .COMPLEX Qty: 90 1RF Dose Instruction: TAKE 1 CAPSULE DAILY Rx Instructions: TAKE 1 CAPSULE DAILY Follow-up/Referrals: Campos Rico DO [Primary Care Provider, Internal Medicine] Time of Disposition: 13:34 Quality NIHSS Nursing Documentation ED NIHSS nursing documentation: reviewed/agree
[2025-07-18 13:27] VITALS: BP 155/64; PULSE 82; RESP 16; TEMP 36.7; O2SAT 95
== END 2025-07-18 13:40 | disposition home or self-care (01) ==
PROVIDERS: Emergency Provider Nurse Practitioner Family; PCP Internal Medicine
DX: M70.21 Olecranon bursitis, right elbow (principal); F17.290 Nicotine dependence, other tobacco product, uncomplicated; I10 Essential (primary) hypertension; E11.42 Type 2 diabetes mellitus with diabetic polyneuropathy; Z79.84 Long term (current) use of oral hypoglycemic drugs; E78.5 Hyperlipidemia, unspecified; D68.00 Von Willebrand disease, unspecified; Z85.46 Personal history of malignant neoplasm of prostate; Z90.5 Acquired absence of kidney
CPT/HCPCS: 99212; G0463